=== PATIENT | female | born 1945 | race Caucasian/White ===

== ENCOUNTER 2022-09-09 09:13 | Outpatient (CLI) | payer MEDICARE, OTHER | END 2022-09-09 09:14 | disposition home or self-care (01) | LOC: CSHMRI 09:13 | PROVIDERS: ATTEND Nurse Practitioner Family | DX: M25.511 Pain in right shoulder (principal); M50.10 Cervical disc disorder with radiculopathy, unspecified cervical region; M25.521 Pain in right elbow; M62.838 Other muscle spasm; M75.121 Complete rotator cuff tear or rupture of right shoulder, not specified as traumatic; M62.511 Muscle wasting and atrophy, not elsewhere classified, right shoulder; S43.431A Superior glenoid labrum lesion of right shoulder, initial encounter; S46.211A Strain of muscle, fascia and tendon of other parts of biceps, right arm, initial encounter; M25.411 Effusion, right shoulder ==